=== PATIENT | male | born 1980 ===

== ENCOUNTER 2020-04-09 20:00 | Emergency (ER) | payer OTHER ==
[~2020-04-09] VITALS: Ht 172.7 cm; Wt 77.1 kg
--- NOTE | 2020-04-09 20:40 | NUR ---
Dr. Butts at bedside for MSE
[2020-04-09] MEDS ORDERED: OLANZAPINE 5 MG TABLET ONE (20:50)
[2020-04-09] MEDS ORDERED: OLANZAPINE 5 MG TABLET PO ONE (21:00)
[2020-04-09 21:17] LABS: ETHANOL < 3 MG/DL (0-0)
[2020-04-09 21:34] LABS: BASOPHILS # (AUTO) 0.1 K/uL (0.0-8.0); BASOPHILS % (AUTO) 0.5 % (0.0-2.0); EOSINOPHILS % (AUTO) 0.4 % (0.0-7.0); HEMOGLOBIN 11.4 g/dL (12.5-16.3); LYMPHOCYTES # (AUTO) 1.5 K/uL (20.0-40.0); LYMPHOCYTES % (AUTO) 13.3 % (20.5-51.5); MEAN CORPUSCULAR HEMOGLOBIN 30.5 uug (23.8-33.4); MEAN CORPUSCULAR HGB CONC 35 g/dL (32.5-36.3); MEAN CORPUSCULAR VOLUME 88.2 fL (73.0-96.2); MONOCYTES # (AUTO) 0.8 K/uL (2.0-10.0); MONOCYTES % (AUTO) 7.3 % (0.0-11.0); NEUTROPHILS % (AUTO) 78.5 % (38.5-71.5); PLATELET COUNT (AUTO) 229 K/uL (152-348); RED BLOOD CELL COUNT(AUTO) 3.74 MIL/uL (4.06-5.63); WHITE BLOOD COUNT (AUTO) 11.5 K/uL (3.6-10.2)
--- NOTE | 2020-04-09 21:41 | NUR ---
pt in bed, aa/o uncooperative with care safety precautions in place. bed locked, lowest position. security allison at bedside
[2020-04-09 21:43] LABS: CARBON DIOXIDE 23 mmol/L (21-32); CHLORIDE 102 mmol/L (98-107); GLUCOSE 94 mg/dL (74-106); POTASSIUM 3.4 mmol/L (3.5-5.1); UREA NITROGEN, BLOOD 12 mg/dL (7-18)
[2020-04-09 21:48] LABS: ALANINE AMINOTRANSFERASE 35 U/L (16-63); ALKALINE PHOSPHATASE 70 U/L (50-136); ASPARTATE AMINOTRANSFERASE 35 U/L (15-37); BILIRUBIN,DIRECT 0.2 mg/dL (0.0-0.2); BILIRUBIN,TOTAL 0.5 mg/dL (0.2-1.0); CREATINE KINASE, TOTAL 721 U/L (39-308); TOTAL PROTEIN, SERUM 8.5 g/dL (6.4-8.2)
[2020-04-09 21:49] LABS: ACETAMINOPHEN < 2.0 ug/mL (10-30)
[2020-04-09 21:56] LABS: THYROID STIMULATING HORMONE 0.934 mIU/mL (0.358-3.740)
[2020-04-09 22:27] LABS: *BILIRUBIN,URIN NEGATIVE (NEGATIVE); *BLOOD, URINE 3+ (NEGATIVE); *CLARITY,URINE CLEAR (CLEAR); *COLOR,URINE RED (YELLOW); *KETONES,URINE NEGATIVE (NEGATIVE); *UROBILINOGEN,URINE 0.2 E.U./dl (NORMAL); LEUKOCYTE ESTERASE ,URINE 1+ (NEGATIVE); NITRITE, URINE NEGATIVE (NEGATIVE); PH,URINE 6.5 (5.0-8.0); UGLUCOSE NEGATIVE (NEGATIVE)
[2020-04-09 22:37] LABS: BACTERIA,URINE FEW /HPF (NONE SEEN); RBC,URINE 50-80 /HPF (0-3); WBC,URINE 20-50 /HPF (0-3)
[2020-04-09 22:47] LABS: *AMPHETAMINE, URINE POSITIVE (NEGATIVE); *BARBITURATE, URINE NEGATIVE (NEGATIVE); *CANNABINOID, URINE POSITIVE (NEGATIVE); *COCCAINE, URINE NEGATIVE (NEGATIVE); *OPIATE, URINE NEGATIVE (NEGATIVE); *PHENCYCLIDINE SCREEN,URINE NEGATIVE (NEGATIVE)
[2020-04-09] MEDS ORDERED: CEphaleXIN 250 MG CAPSULE PO ONE (23:00)
[2020-04-09] MEDS ORDERED: CEphaleXIN 250 MG CAPSULE ONE (23:04)
--- NOTE | 2020-04-09 23:22 | NUR ---
pt in bed, asleep no s/s of distress respirations even and unlabored safety precautions in place. bed lcoked, lowest position security Moon 1:1
--- NOTE | 2020-04-10 02:01 | NUR ---
pt in bed, asleep, easily arousable no s/s of distress respirations even and unlabored safety precautions in place. bed locked, lowest position will continue to monitor pt
--- NOTE | 2020-04-10 04:25 | NUR ---
pt in bed, asleep, easily arousable no s/s of distress respirations even and unlabored safety precautions in place. bed locked, lowest position will continue to monitor
--- NOTE | 2020-04-10 06:11 | NUR ---
Patient given written and verbal discharge instructions. Patient verbalizes understanding of instructions. Patient is ambulatory with steady gait. Refuses offer of skilled nursing placement. Patient given list of available shelters in surrounding area. aa/ox4. able to speak in complete sentences in stable condition denies SI ambulatory with steady gait all belongings with pt
[2020-04-10 06:18] VITALS: BP 133/78
== END 2020-04-10 06:18 | disposition home or self-care (01) ==
LOC: ER 20:04 → EDBD 20:04 → ER 04-10 06:18
DX: F15.150 Other stimulant abuse with stimulant-induced psychotic disorder with delusions (principal); F15.129 Other stimulant abuse with intoxication, unspecified; N39.0 Urinary tract infection, site not specified; D64.9 Anemia, unspecified; D72.829 Elevated white blood cell count, unspecified; Z87.442 Personal history of urinary calculi; M89.9 Disorder of bone, unspecified
CPT/HCPCS: 36415; 80048; 80076; 80307 ×2; 80329; 81001; 82550; 84443; 85025; 85730; 87086; 99285; G0480; J7030